=== PATIENT | female | born 1975 | race Caucasian/White ===

== ENCOUNTER 2020-08-10 18:28 | Emergency (ER) | payer MEDICAID, SELFPAY ==
[2020-08-10 18:37] VITALS: BP 166/109; PULSE 81; RESP 18; TEMP 36.4; O2SAT 100; BMI 27.4
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
[2020-08-10 19:26] VITALS: BP 159/103; PULSE 88; RESP 18; O2SAT 100
[2020-08-10 19:31] LABS: Alanine Aminotransferase 15 U/L (0-33); Albumin Level 4.1 g/dL (3.5-5.2); Alkaline Phosphatase 100 IU/L (35-105); Blood Urea Nitrogen 15 mg/dL (6-20); Calcium 9.1 mg/dL (8.5-10.5); Carbon Dioxide 26 mmol/L (22-29); Chloride 105 mmol/L (98-107); Globulin 2.4 g/dL (1.3-4.6); Glomerular Filtration Rate 76.9 mL/min (90-130); Glucose 101 mg/dL (65-115); Osmolality Calculated 293 mOsm/kg (285-295); Sodium 141 mmol/L (136-145); Total Bilirubin 0.2 mg/dL (0.15-1.2); Total Protein 6.5 g/dL (6.6-8.7)
[2020-08-10 19:38] LABS: Alcohol Level < 10 mg/dL (0-10)
[2020-08-10 19:39] LABS: Anion Gap 13.7 (5-19); Aspartate Amino Transferase 38 U/L (0-32); Potassium 3.7 mmol/L (3.5-5.1)
--- NOTE | 2020-08-10 20:58 | PC.NURSE ---
per pt request called pt mother Allison and gave her an update
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
[2020-08-10 21:59] VITALS: BP 125/92; PULSE 103; O2SAT 100
== END 2020-08-10 21:59 | disposition home or self-care (01) ==
PROVIDERS: Emergency Provider Family Medicine
DX: Z04.1 Encounter for examination and observation following transport accident (principal); W22.10XA Striking against or struck by unspecified automobile airbag, initial encounter; V49.40XA Driver injured in collision with unspecified motor vehicles in traffic accident, initial encounter
CPT/HCPCS: 12345; 70450; 71260; 72125; 73590; 74177; 80053; 80307; 85025; 99282; 99283; Q9967

== ENCOUNTER → 2020-08-30 17:51 | Outpatient (BNVA) | payer MEDICAID, SELFPAY | PROVIDERS: Visit Provider Nurse Practitioner | DX: Z20.828 Contact with and (suspected) exposure to other viral communicable diseases (principal); U07.1 COVID-19 | CPT/HCPCS: 87635 ==

== ENCOUNTER → 2023-08-24 10:38 | Outpatient (BNVA) | payer MEDICAID, SELFPAY | PROVIDERS: Visit Provider Nurse Practitioner Family | DX: R39.9 Unspecified symptoms and signs involving the genitourinary system (principal); N20.0 Calculus of kidney | CPT/HCPCS: 81000 ==

== ENCOUNTER 2023-08-30 07:51 | Emergency (ER) | payer MEDICAID, SELFPAY ==
[2023-08-30 08:11] VITALS: BP 136/87; PULSE 76; TEMP 36.9; O2SAT 98; BMI 27.4
--- NOTE | 2023-08-30 08:14 | W.ED.GENADLT ---
HPI - General Adult General: Chief complaint: Upper Respiratory Infection Stated complaint: headache,N/D,fever Time Seen by Provider: 08/30/23 08:07 Source: patient Mode of arrival: ambulatory History of Present Illness: 48-year-old female presents emergency room with 2 to 3 days onset of headache low-grade fever cough diarrhea myalgias congestion. No vomiting but has been very nauseous. No dysuria urgency or frequency no abdominal pain. No chest pain mildly short of breath cough been nonproductive Onset (ago): day(s) Relieving factors: none Exacerbating factors: none Associated symptoms: Reports cough, dyspnea, fevers/chills, headache(s), malaise, nausea, short of breath and weakness; Deny chest pain, confusion, diaphoresis, decreased appetite, rash, seizures, syncope or vomiting Treatments prior to arrival: none Review of Systems Const: Reports: fever(s), chills and malaise; Denies: diaphoresis Card: Denies: chest pain or syncope Resp: Reports: dyspnea and non-productive cough GI: Reports: nausea and diarrhea; Denies: abdominal pain or vomiting : Denies: dysuria, urinary frequency or urinary urgency Musc: Denies: neck pain or back pain Skin/Breast: Denies: rash Neuro: Reports: headache(s); Denies: confusion Physical Exam Const: COMMON NORMALS: no acute distress GENERAL APPEARANCE: cooperative and comfortable ORIENTATION/CONSCIOUSNESS: Yes awake, Yes oriented to person, Yes oriented to place and Yes oriented to time HENMT: COMMON NORMALS: normocephalic, atraumatic and hearing grossly normal bilaterally HEAD & SCALP: normocephalic and atraumatic Resp: COMMON NORMALS: normal respiratory effort, No retractions, No use of accessory muscles and clear to auscultation bilaterally AUSCULTATION: clear to auscultation bilaterally Cardio: COMMON NORMALS: regular rate, regular rhythm and No murmurs present (Cardio) RATE: regular rate RHYTHM: regular rhythm GI: COMMON NORMALS: Soft to palpation and No hepatosplenomegaly present AUSCULTATION: Yes normoactive bowel sounds PALPATION: Yes Soft to palpation, No Tenderness to palpation present (GI), No Guarding due to palpation present (GI) and Yes No hepatosplenomegaly present Extremity: COMMON NORMALS: normal to inspection, capillary refill normal, no clubbing, cyanosis or edema, no calf tenderness and no pedal edema Neuro: SENSORIUM/ORIENTATION: Yes oriented to person, Yes oriented to place and Yes oriented to time Skin: COMMON NORMALS: no rashes or lesions noted GENERAL SKIN EXAM: no rashes or lesions noted Course Vital Signs: Vital signs: Vital Signs Temperature 98.4 F 08/30/23 08:11 Pulse Rate 78 08/30/23 08:20 Respiratory Rate 14 08/30/23 11:24 Blood Pressure 139/81 08/30/23 11:24 Pulse Oximetry 99 08/30/23 11:24 Oxygen Delivery Me thod Room Air 08/30/23 09:21 MDM - General Adult Medical Decision Making Clinically suspect patient is COVID. Patient is negative but she may be outside of the window. She did have some hematuria she has a known history of nephrolithiasis. CT done showed there is a question of some area of infection the right renal pelvis. Will go ahead and cover with antibiotics for now culture done. Discussed possibly doing a PCR COVID the next few days he will be outside the window of opportunity for Paxlovid at that point if she does have COVID she did not require hospitalization this time her symptoms are very mild. Discharge patient home with supportive cares Macrobid for until the culture is resulted. Return if has further problems Medical Records I reviewed the patient's medical records. Lab Data I reviewed the patient's lab results. 08/30/23 08:17 08/30/23 08:17 Laboratory Results WBC 8.18 10^3/uL (3.29-11.43) 08/30/23 08:17 RBC 4.62 10^6/uL (3.85-5.65) 08/30/23 08:17 Hgb 13.70 g/dL (11.27-16.99) 08/30/23 08:17 Hct 40.7 % (36-47) 08/30/23 08:17 MCV 88.1 fl (85-98) 08/30/23 08:17 MCH 29.7 pg (27-33) 08/30/23 08:17 MCHC 33.7 g/dL (30-55) 08/30/23 08:17 RDW 11.9 % (12.1-15.1) L 08/30/23 08:17 Plt Count 224 10^3/cmm (157-399) 08/30/23 08:17 MPV 9.2 fL (7.4-10.4) 08/30/23 08:17 Neut % (Auto) 78.9 % 08/30/23 08:17 Lymph % (Auto) 12.0 % 08/30/23 08:17 Bailey % (Auto) 7.5 % 08/30/23 08:17 Eos % (Auto) 0.9 % 08/30/23 08:17 Baso % (Auto) 0.5 % 08/30/23 08:17 Neut # (Auto) 6.46 10^3/uL (1.8-7.7) 08/30/23 08:17 Lymph # (Auto) 1.0 10^3/uL (0.8-4.8) 08/30/23 08:17 Bailey # (Auto) 0.6 10^3/uL (0.2-0.9) 08/30/23 08:17 Eos # (Auto) 0.1 10^3/uL (0.0-0.8) 08/30/23 08:17 Baso # (Auto) 0.0 10^3/uL (0.0-0.1) 08/30/23 08:17 Nucleated RBC % (auto) 0 % 08/30/23 08:17 Nucleated RBCs # 0.0 /100WBC 08/30/23 08:17 Sodium 140 mmol/L (136-145) 08/30/23 08:17 Potassium 4.2 mmol/L (3.5-5.1) 08/30/23 08:17 Chloride 104 mmol/L (98-107) 08/30/23 08:17 Carbon Dioxide 26 mmol/L (22-29) 08/30/23 08:17 Anion Gap 14.2 (5-19) 08/30/23 08:17 BUN 9 mg/dL (6-20) 08/30/23 08:17 Creatinine 0.7 mg/dL (0.5-0.9) 08/30/23 08:17 GFR Calculation 88.6 mL/min (90-130) L 08/30/23 08:17 Glucose 117 mg/dL (65-115) H 08/30/23 08:17 Calculated Osmolality 290 mOsm/kg (285-295) 08/30/23 08:17 Calcium 9.5 mg/dL (8.5-10.5) 08/30/23 08:17 Total Bilirubin 0.9 mg/dL (0.15-1.2) 08/30/23 08:17 AST 15 U/L (0-32) 08/30/23 08:17 ALT < 5 U/L (0-33) 08/30/23 08:17 Alkaline Phosphatase 124 U/L (35-105) H 08/30/23 08:17 Total Protein 7.6 g/dL (6.6-8.7) 08/30/23 08:17 Albumin 4.4 g/dL (3.5-5.2) 08/30/23 08:17 Globulin 3.2 g/dL (1.3-4.6) 08/30/23 08:17 Urine Color Yellow (Yellow) 08/30/23 08:55 Urine Appearance Sl hazy (CLEAR) A 08/30/23 08:55 Urine pH 6.5 (5-7) 08/30/23 08:55 Ur Specific [place] 1.015 (1.005-1.030) 08/30/23 08:55 Urine Protein 1+ (Negative) H 08/30/23 08:55 Urine Glucose (UA) Norm (Normal) 08/30/23 08:55 Urine Ketones Negative (Negative) 08/30/23 08:55 Urine Blood 3+ (Negative) H 08/30/23 08:55 Urine Nitrate Negative (Negative) 08/30/23 08:55 Urine Bilirubin Neg (Negative) 08/30/23 08:55 Urine Urobilinogen Norm mg/dL (Negative) 08/30/23 08:55 Ur Leukocyte Esterase Negative (Negative) 08/30/23 08:55 Urine RBC 25-40 /hpf (0-2) H 08/30/23 08:55 Urine WBC 5-10 /hpf (0-5) H 08/30/23 08:55 Ur Squamous Epith Cells 0-4 /hpf (0-5) H 08/30/23 08:55 Amorphous Sediment Not Reportable 08/30/23 08:55 Urine Bacteria Trace /hpf (NONE) 08/30/23 08:55 Influenza Type A Ag negative (Negative) 08/30/23 08:51 Influenza Type B Ag negative (Negative) 08/30/23 08:51 SARS-CoV-2 Ag (Rapid) negative (Negative) 08/30/23 08:22 All radiology interpretation(s) finalized by discharge Discharge Plan Discharge Patient Disposition: Home Clinical Impression: Gastroenteritis, Cystitis Condition: Stable Prescriptions: New ondansetron HCl 4 mg tablet 4 mg PO Q6H PRN (Reason: nausea and vomiting) Qty: 20 0RF Macrobid 100 mg capsule 100 mg PO BID 7 Days Qty: 14 0RF Rx Instructions: must administer with a meal/food Discharge Orders: Discharge ED (Routine); Ordered 08/30/23 Ordered By: Dwight Carroll Referrals: Bang Rodriges MD [Primary Care Provider] - Discharge Diet: Clear Liquid Discharge Activity: Increase activity as tolerated Patient Instructions: Opioid Safety, Pain Management Activity Restrictions/Additional Instructions: Thank you for choosing [facility] for your healthcare needs today. Please realize this is an emergency room and that we are providing you with a medical screening exam and this may not be complete and all inclusive of all the testing and or work up that you may need to determine your ailment or severity of your illness. It is very important that you follow up as instructed or that you return to the Emergency Department should you have concerns or if your condition changes or worsens in any way. You are seen today for upper respiratory infection. Your symptoms are consistent with COVID. The COVID antigen was negative, however the COVID antigen is a limited test and can only detect the test for a brief window. Frequently people with COVID when they become symptomatic are outside of the window of the test being accurate. Currently there is a shortage of COVID PCR test the more definitive test and we were not able to run that today. Your vital signs and chest x-ray were otherwise normal and stable. Recommend the clear liquid diet and nausea medications as needed. Tylenol or Profen as needed. You can use other [id number] cough cold medications as well. You are also noted to have blood in the urine CT for renal stone showed renal calculi but none that are in the ureters causing any obstruction there is a question of inflammation around the proximal ureter on the right. There is no clear signs of infection in the urine and no elevation of your white count. Will culture the urine for the interim have started you on Macrobid 1 pill twice daily. Coding Level of Care Code ED [facility] for Florentin Guzman
[2023-08-30] MEDS: sodium chloride 0.9% 1,000 ML 999 ML IV (08:19)
[2023-08-30 08:20] VITALS: BP 136/87; PULSE 78; RESP 14; O2SAT 100
[2023-08-30 08:28] LABS: Basophils % 0.5 %; Eosinophils # 0.1 10^3/uL (0.0-0.8); Eosinophils % 0.9 %; Hematocrit 40.7 % (36-47); Mean Corpuscular HGB Conc 33.7 g/dL (30-55); Mean Corpuscular Hemoglobin 29.7 pg (27-33); Mean Corpuscular Volume 88.1 fl (85-98); Mean Platelet Volume 9.2 fL (7.4-10.4); Monocytes # 0.6 10^3/uL (0.2-0.9); Monocytes % 7.5 %; Neutrophils # 6.46 10^3/uL (1.8-7.7); Neutrophils % 78.9 %; Nucleated Red Blood Cells % 0 %; Platelet Count 224 10^3/cmm (157-399); Red Blood Count 4.62 10^6/uL (3.85-5.65); Red Cell Distribution Width 11.9 % (12.1-15.1); White Blood Count 8.18 10^3/uL (3.29-11.43)
[2023-08-30 08:44] LABS: SARS Covid-2 Antigen negative (Negative)
--- NOTE | 2023-08-30 08:48 | XR_ITS ---
WS: [id number] Portable AP upright chest, 08/30/2023 Clinical Data: dyspnea/cough Comparison: Acute abdomen series, 02/23/2011 Findings: No nodules, masses or effusions are seen. The heart is normal. The pulmonary vascularity is not increased. No pneumonia or pneumothorax is seen. There are cholecystectomy clips in the right up per quadrant. Impression: Negative chest.
[2023-08-30 08:54] LABS: Alanine Aminotransferase < 5 U/L (0-33); Albumin Level 4.4 g/dL (3.5-5.2); Alkaline Phosphatase 124 U/L (35-105); Anion Gap 14.2 (5-19); Aspartate Amino Transferase 15 U/L (0-32); Blood Urea Nitrogen 9 mg/dL (6-20); Calcium 9.5 mg/dL (8.5-10.5); Carbon Dioxide 26 mmol/L (22-29); Chloride 104 mmol/L (98-107); Creatinine Clr Calc Pharmacy 90.4078; Globulin 3.2 g/dL (1.3-4.6); Glomerular Filtration Rate 88.6 mL/min (90-130); Glucose 117 mg/dL (65-115); Osmolality Calculated 290 mOsm/kg (285-295); Potassium 4.2 mmol/L (3.5-5.1); Sodium 140 mmol/L (136-145); Total Bilirubin 0.9 mg/dL (0.15-1.2); Total Protein 7.6 g/dL (6.6-8.7)
[2023-08-30 08:55] VITALS: BP 132/88
[2023-08-30 09:19] LABS: Influenza A by IFA negative (Negative); Influenza B by IFA negative (Negative)
[2023-08-30 09:21] VITALS: BP 139/81; O2SAT 99
[2023-08-30 09:51] LABS: Add Urine Culture? Yes; Add Urine Microscopic? YES; Bacteria Urine TRACE /hpf; Bilirubin Urine Neg (Negative); Blood Urine 3+ (Negative); Glucose Urine UA Norm (Normal); Ketones Urine Negative (Negative); Leukocyte Esterase Urine Negative (Negative); Nitrate Urine Negative (Negative); Protein Urine 1+ (Negative); RBC Urine 25-40 /hpf (0-2); Specific Gravity, Urine 1.015 (1.005-1.030); Squamous Epithelial Cell Urine 0-4 /hpf (0-5); Urine Appearance SL Hazy (CLEAR); Urine Color Yellow (Yellow); Urobilinogen Urine Norm (Negative); pH Urine 6.5 (5-7)
--- NOTE | 2023-08-30 10:03 | CT_ITS ---
WS: [id number] CT ABDOMEN PELVIS TECHNIQUE: Noncontrast CT of the abdomen and pelvis with coronal and sagittal reformatted images. CLINICAL INFORMATION: hematuria COMPARISON: CT 08/10/2020 DLP: 575.[address] scans at [facility] use at least one of these dose optimization techniques: automated e xposure control; mA and/or kV adjustment per patient size (includes targeted exams where dose is matc hed to clinical indication); or iterative reconstruction. FINDINGS: Lung bases are well aerated. Noncontrast liver is normal. Normal noncontrast spleen. Cholecystectomy clips. Normal GE junction. Noncontrast pancreas is normal. Adrenal glands are normal. Atrophic RIGHT kidney. Nonobstructing RIGHT renal pelvic calculus measurin g 14 mm. Dilatation of the RIGHT renal pelvis similar to 2020. Mild induration about the renal pelvis is new compared to previous. Recommend correlation for UTI. RIGHT ureter is decompressed to the bladder. No hydronephrosis in the LEFT kidney. Small nonobstructi ng RIGHT renal parenchymal calculi. Tiny nonobstructing LEFT calyceal tip calculi. Pelvic phleboliths . Normal appendix in the RIGHT lower quadrant. Tiny fat-containing umbilical hernia. Adrenal glands a re normal. Sigmoid diverticulosis. No evidence of acute diverticulitis. IMPRESSION: 1. Nonobstructing RIGHT renal pelvic calculus measuring 14 mm new since 2019. Dilatation of the RIGH T renal pelvis with surrounding induration. Recommend correlation for UTI. 2. Both ureters are decompressed. No obstructing ureteral calculi. 3. Tiny nonobstructing renal parenchymal and calyceal tip calculi bilaterally. 4. Cholecystectomy clips. 5. Sigmoid diverticulosis.
[2023-08-30 11:24] VITALS: BP 139/81; RESP 14; O2SAT 99
== END 2023-08-30 11:25 | disposition home or self-care (01) ==
PROVIDERS: Emergency Provider Family Medicine; PCP Family Medicine
DX: K52.9 Noninfective gastroenteritis and colitis, unspecified (principal); N30.90 Cystitis, unspecified without hematuria; Z11.52 Encounter for screening for COVID-19
CPT/HCPCS: 71045; 74176; 80053; 81001; 85025; 87086; 87426; 87804; 99284; J7030